=== PATIENT | female | born 1975 ===

== ENCOUNTER 2018-01-27 12:40 | Inpatient (IN) | payer OTHER ==
[~2018-01-27] VITALS: Ht 157.5 cm; Wt 59.0 kg
[2018-01-27] MEDS ORDERED: ZIAC 5-6.25 MG1 EACH (13:00)
[2018-01-27] MEDS ORDERED: DEXILANT60 MG (13:00)
[2018-01-27] MEDS ORDERED: ENZYCAP (13:02)
[2018-01-29] MEDS ORDERED: OXYC1TAB9 PO (08:01)
[2018-01-29] MEDS ORDERED: POLY119PG PO (08:01)
== END 2018-01-29 09:10 | disposition home or self-care (01) | DRG 419 ==
LOC: ER 12:40 → EDBD 12:50 → MEDJ 18:20 → SEC-K 18:20 → MEDJ 23:45
PROC: 0FT44ZZ Resection of Gallbladder, Percutaneous Endoscopic Approach (ICD-10-PCS; principal; 2018-01-27)
PROC: BF13YZZ Fluoroscopy of Gallbladder and Bile Ducts using Other Contrast (ICD-10-PCS; 2018-01-27)
PROC: BW40ZZZ Ultrasonography of Abdomen (ICD-10-PCS; 2018-01-27)
DX: K80.10 Calculus of gallbladder with chronic cholecystitis without obstruction (principal)